=== PATIENT | female | born 1965 | race Caucasian/White ===

== ENCOUNTER 2018-04-27 11:40 | Emergency (ER) | payer SELFPAY ==
[~2018-04-27] VITALS: Ht 160 cm; Wt 72.7 kg
[2018-04-27 11:45] VITALS: Ht 160 cm; Wt 72.7 kg
[2018-04-27] MEDS ORDERED: ZOLOFT100 MG PO (11:47)
[2018-04-27] MEDS ORDERED: BUPROPION HCL75 MG PO (11:47)
[2018-04-27] MEDS ORDERED: NORCO 7.5/325 T1 TA1 PO (16:00)
[2018-04-27 16:33] VITALS: BP 155/68
== END 2018-04-27 16:33 | disposition home or self-care (01) ==
LOC: D.ER 11:40
DX: S99.922A Unspecified injury of left foot, initial encounter (principal); X50.1XXA Overexertion from prolonged static or awkward postures, initial encounter; Y93.89 Activity, other specified; Y92.019 Unspecified place in single-family (private) house as the place of occurrence of the external cause

== ENCOUNTER 2019-03-23 07:11 | Emergency (ER) | payer OTHER ==
[~2019-03-23] VITALS: Ht 160 cm; Wt 68.2 kg
[~2019-03-23 07:11] MED LIST: BUPROPION HCL75 MG PO; NORCO 7.5/325 T1 TA1 PO; ZOLOFT100 MG PO
[2019-03-23 07:15] VITALS: Ht 160 cm; Wt 68.2 kg
[2019-03-23 07:42] LABS: HEMATOCRIT 43.1 % (36.0-48.0); HEMOGLOBIN 14.4 g/dL (12-16); LYMPHOCYTES 32.6 % (15-50); MCH 27.7 pg (26.0-34.0); MCHC 33.4 g/dL (31.0-37.0); MCV 82.9 fL (80.0-100.0); MEAN PLATELET VOLUME 11.2 fL (7.4-10.4); NEUTROPHILS 56.6 % (40-80); PLATELET COUNT 272 10x3/uL (130-400); RDW 13.4 % (11.5-14.5); WBC 5.1 10x3/uL (4.8-10.8)
[2019-03-23 08:05] LABS: APTT 30.1 SECONDS (22.8-39.4); INR 0.91 (0.85-1.17); PROTIME 11.8 SECONDS (11.6-15.0)
[2019-03-23 08:24] LABS: ALBUMIN 3.5 g/dL (3.4-5.0); ALKALINE PHOSPHATASE 79 U/L (46-116); ALT (SGPT) 9 U/L (10-68); BILIRUBIN - TOTAL 0.33 mg/dL (0.2-1.3); CALC OSMOLALITY 284 mosm/kg (275-300); CALCIUM 8.7 mg/dL (8.5-10.1); CARBON DIOXIDE 27.7 mmol/L (21.0-32.0); CHLORIDE - SERUM 106 mmol/L (98-107); CREATININE - SERUM 0.9 mg/dL (0.6-1.3); GLUCOSE 91 mg/dL (74-106); POTASSIUM - SERUM 3.9 mmol/L (3.5-5.1); PROTEIN - SERUM 7.1 g/dL (6.4-8.2); SODIUM 142 mmol/L (136-145); UREA NITROGEN 19 mg/dL (7-18); eGFR NON AFRICAN AMERICAN 69 mL/min (90-120)
[2019-03-23 08:35] LABS: CKMB 0.7 U/L (0.0-3.6); CREATINE KINASE 46 UL (21-215)
[2019-03-23 08:36] LABS: TROPONIN-I < 0.017 ng/mL (0.000-0.060)
[2019-03-23] MEDS ORDERED: LISINOPRIL5 MG PO (09:31)
[2019-03-23 09:43] VITALS: BP 167/77
== END 2019-03-23 09:45 | disposition home or self-care (01) ==
LOC: D.ER 07:11
PROVIDERS: Family Medicine
DX: I10 Essential (primary) hypertension (principal); R51 Headache